=== PATIENT | female | born 1985 | race Caucasian/White ===

== ENCOUNTER 2016-09-27 16:36 | Emergency (ER) | payer OTHER ==
[~2016-09-27] VITALS: Ht 162.6 cm; Wt 54.5 kg
[~2016-09-27 16:36] MED LIST: AMT25T PO; HYDR-4003 PO; ONDA4TAB9 PO; SULF1TAB35 PO
[2016-09-27 16:52] VITALS: BP 150/74; RESP 18; O2SAT 99
--- NOTE | 2016-09-27 17:02 | ED.REPORT ---
HPI-General Illness Date of Service Sep 27, 2016 ED Provider: Triston Garcia MD Pt is a 31 year old female presenting to the ED complaining of throat pain and swelling onset 4 days ago. Denies cough, runny nose, fever. Nursing Notes Stated Complaint: SINUS PRESSURE Chief Complaint: ENT & Mouth Nursing Notes Reviewed: Yes Allergies: Coded Allergies: No Known Allergies (Unverified Allergy, Unknown, 06/01/16) Scheduled Amitriptyline (Amitriptyline) 25 Mg Tab 25 MG PO HS Amoxicillin/Clav K 875-125 mg (Augmentin 875-125 mg) 1 Each Tablet 1 TABLET PO BID Sulfamethoxazole/Trimeth 800-160 mg (Bactrim DS 800-160 mg) 1 Each Tablet 1 TABLET PO BID Scheduled PRN Hydrocodone-Acetaminophen 5-325 mg (Hydrocodone-Acetaminophen 5-325 mg) 1 Each Tablet 1 TABLET PO Q6H PRN PRN For Pain Ondansetron ODT (Zofran ODT) 4 Mg Tablet 4 MG PO Q4H PRN PRN For Nausea General Time Seen by MD: 17:00 Chief Complaint Sore throat Hx Obtained From: Patient Arrived By: Walk-in Sudden in Onset?: No Onset Occurred: 4 days ago Symptom Duration: Since onset Location: : Face: Neck Quality: Painful Severity: Current: Mild Severity: Maximum: Mild Recent Healthcare: No recent doctor visit, No recent hospitalization Similar Sx Previous: No Past Medical History Past Medical History Urine cultures done on 11/30/2015 and 12/23/2015 both showed "no growth" White coat syndrome which commonly causes her to be tachycardic Past Surgical History Family History Denies urologic disease Smoking History Never Smoker Social History Other Social History: Good social support, Local resident Ambulatory Status Independent Review of Systems Full Review of Systems Constitutional: Denies: Fever Ears / Nose / Throat: Reports: Sinus problem, Sore throat, Throat pain, Throat swelling Respiratory: Denies: Non-productive cough Complete sys rev & neg: except as marked. Physical Exam Vital Signs Vital Signs Date Time Temp Pulse Resp B/P Pulse Ox O2 Delivery O2 Flow Rate FiO2 09/27/16 16:52 37.1 129 18 150/74 99 Initial VS: Reviewed General/Constitutional: Well-developed, Well-nourished Head / Eyes: Atraumatic, Normocephalic, PERRL Respiratory: Breath sounds normal, Clear to auscultation, No respiratory distress Cardiovascular: Regular rate & rhythm, Heart sounds normal, Intact distal pulses Abdomen / GI: No distention Extremities: No tenderness Skin: Warm, Dry, No cyanosis Neurologic: Alert, Oriented, Nonfocal Psychiatric: Mood/affect normal, Behavior normal, Normal thought content ENT: Airway patent, Tympanic membs NL Oropharynx erythematous, no exudates. Re-Eval/Medical Decision Med Decision/Clinical Course 31-year-old female with facial pain and throat pain 4 days. Maxillary sinus tenderness. We will treat with Augmentin. Possibly viral and patient may wait to see if symptoms resolve prior to starting antibiotics if she chooses. Follow-up primary doctor several days. Return precautions given. Time of Eval: 17:35 Patient Status: Condition improved Re-Evaluation/Progress Note: Discussed plan for discharge. Pt understands and agrees. All pt questions addressed. Counseled Regarding: Diagnosis, Lab results, Need for follow-up, When/why to return to ED Discharge & Departure Primary Impression: Sinusitis Sinusitis location: unspecified location Chronicity: unspecified Qualified Code: J32.9 - Chronic sinusitis, unspecified Disposition: Home Discharge Condition All VS Reviewed: Yes Condition: Improved Additional Instructions: It looks like you have sinusitis. Take some throat lozenges and drink lots of fluids. Take the antibiotics as prescribed. Return to the ER if you have any new or worsening symptoms. Follow up with your primary care doctor if your symptoms don't improve. Referrals: [facility] (PCP) Scribe Attestation Portions of this note were transcribed by Ajit. I, Dr. Garcia personally performed the history, physical exam and medical decision-making; I reviewed and confirmed the accuracy of the information in the transcribed note. Signed by: Madison Moreno, 09/27/2016 and 1735. Triston Garcia MD Sep 27, 2016 17:02 AJIT OLVERA Sep 27, 2016 17:23
[2016-09-27] MEDS ORDERED: AMOX-366 PO (17:23)
== END 2016-09-27 17:30 | disposition home or self-care (01) ==
LOC: SED 16:36
DX: J32.9 Chronic sinusitis, unspecified (principal)

== ENCOUNTER 2017-02-03 20:16 | Emergency (ER) | payer OTHER ==
[~2017-02-03] VITALS: Ht 162.6 cm; Wt 56.4 kg
[~2017-02-03 20:16] MED LIST changes: +AMOX-366 PO
[2017-02-03 20:23] VITALS: BP 144/89; RESP 20; O2SAT 99
--- NOTE | 2017-02-03 20:31 | ED.REPORT ---
HPI-General Illness Date of Service Feb 03, 2017 ED Provider: Dez Holden DO 31 y/o female with no pertinent hx presents to the ED complaining of a lump in her throat, onset last week. The pt states "when I swallow food it feels like it hits a rock". She has also been feeling pressure in her chest for the past three days which she associates with the blocked throat. Associated sx include chills, SOB, nausea and dysphagia. She denies cough. Drinking water or cough drops have not relieved her throat pain.The pt is currently on her period. Nursing Notes Stated Complaint: TIGHTNESS IN CHEST,SOMETHING IN THROAT Chief Complaint: ENT & Mouth Nursing Notes Reviewed: Yes Allergies: Coded Allergies: No Known Allergies (Verified Allergy, Unknown, 02/03/17) General Time Seen by MD: 20:31 Chief Complaint Other (throat pain) Hx Obtained From: Patient Arrived By: Walk-in Sudden in Onset?: Yes Onset Occurred: 1 week ago Symptom Duration: Since onset Quality: Painful (Throat) Radiation: : Does not radiate Recent Healthcare: Recent doctor visit Similar Sx Previous: No Past Medical History Past Medical History White coat syndrome which commonly causes her to be tachycardic Past Surgical History Family History Denies urologic disease Smoking History Never Smoker Social History Alcohol Use: Denies alcohol use Other Social History: Good social support, Local resident Ambulatory Status Independent Review of Systems Reports: chest pressure Full Review of Systems Constitutional: Reports: Chills Ears / Nose / Throat: Reports: Throat pain (lump in the throat) Respiratory: Reports: Shortness of breath, Denies: Non-productive cough GI: Reports: Dysphagia, Nausea Complete sys rev & neg: except as marked. Physical Exam Vital Signs Vital Signs Date Time Temp Pulse Resp B/P Pulse Ox O2 Delivery O2 Flow Rate FiO2 02/03/17 20:23 37.5 100 20 144/89 99 Room Air Initial VS: Reviewed Head / Eyes: Atraumatic, Normocephalic Neck: Supple, Non-tender, Full range of motion Respiratory: Breath sounds normal, Clear to auscultation, No respiratory distress Cardiovascular: Regular rate & rhythm, Heart sounds normal, Intact distal pulses Abdomen / GI: Soft, Non-tender Extremities: Vascular intact, Neuro intact, No swelling, No tenderness Skin: Warm, Dry, No cyanosis Neurologic: Alert, Oriented, Nonfocal General/Constitutional: Awake, Alert, Cooperative ENT: Atraumatic, Airway patent, Pharynx NL Interpretation & Diagnostics ECG Interpretation ECG Interpretation: Normal sinus rhtyhm. Rate 87. Time: 20:44 Interpreted by: ED physician X-Ray Chest Interpretation Chest Xray Interpretation: IMPRESSION: No acute cardiopulmonary disease. Dictated by: Mary Browne M.D. on 02/03/2017 at 21:22 Approved by: Mary Browne M.D. on 02/03/2017 at 21:22 View: Portable, AP & lat Interpretation / Wet Read by: Interpret - Radiologist Re-Eval/Medical Decision Med Decision/Clinical Course Patient with persistent foreign body sensation and difficulty swallowing and reportedly has switched to a liquid only diet because of this. Clinical exam is reassuring. There certainly seems to be a moderate amount of anxiety going on as well. I question if this patient has esophagitis or other shoulder obstruction or stricture in the esophagus. EKG and chest x-ray are reassuring. She had minimal relief with GI cocktail. Discuss with GI who will plan an endoscopy for tomorrow. Return and follow-up precautions given. Time of Eval: 21:13 Patient Status: Mild relief Re-Evaluation/Progress Note: Rechecked pt. Discussed EKG. All questions answered Time of Eval: 21:31 Patient Status: Mild relief Re-Evaluation/Progress Note: Rechecked pt. Discussed imaging results, diagnosis and plan to discharge. Informed the pt to follow up with Dr. Ring. Pt understands and agrees with plan. F/U instructions and RTER warning given. All questions addressed. Consultation : Referral / Consult Name: Gregory Ring MD Call Returned at: 21:22 Housekeeping Worker: Will see in office, Agrees with eval, Agrees with plan Note: Dr. Ring, GI, will see pt for an endoscopy tomorrow afternoon. Recommends taking OTC antacids and staying NPO solids until midnight and drinking clear liquids until 10:00. Counseled Regarding: Diagnosis, Need for follow-up, When/why to return to ED Discharge & Departure Primary Impression: Throat pain Additional Impression: Foreign body sensation in throat Disposition: Home Discharge Condition All VS Reviewed: Yes Condition: Stable Additional Instructions: Thank you for entrusting us with your care today. Your Xray was normal. Follow up with Dr. Gregory Ring for an endoscopy tomorrow afternoon. Do not eat food after midnight tonight and drink only clear fluids unitl 10am tomorrow. Take over the counter liquid antacids if needed. Return to the emergency department for any new or worsening symptoms. Dr. Ring Address: [address] [place] [address] Referrals: [facility] Gregory Ring MDibalanis Attestation Portions of this note were transcribed by Pepe Hernandez. I, , personally performed the history, physical exam and medical decision-making;I reviewed and confirmed the accuracy of the information in the transcribed note. Signed by Madison Cuba. 02/03/17 21:40 copies to: [facility]; Gregory Ring MD, Timothy Melly SPEARS Feb 03, 2017 20:31 Pepe Hernandez Feb 03, 2017 20:38
[2017-02-03] MEDS ORDERED: LidocaineVisc 2%:Antacid 1:1 10 mL Syringe PO ONE (20:40)
--- NOTE | 2017-02-03 21:24 | DRSVH ---
PROCEDURE: X-RAY CHEST, TWO VIEWS ([id number]) INDICATIONS: chest pain TECHNIQUE: 2 views of the chest were acquired. COMPARISON: None. FINDINGS: Surgical changes and devices: None. Lungs and pleura: No pleural effusions or pneumothorax. Lungs are clear. Mediastinum: Mediastinal contours are normal. Heart size is normal. Bones and chest wall: No suspicious bony abnormalities. Soft tissues appear unremarkable. IMPRESSION: No acute cardiopulmonary disease. Dictated by: Mary Browne M.D. on 02/03/2017 at 21:22 Approved by: Mary Browne M.D. on 02/03/2017 at 21:22
[2017-02-03] MEDS ORDERED: LORazepam Oral Conc 2 mg/mL 30 mL Solution PO ONE (21:35)
[2017-02-03 22:20] VITALS: BP 120/82; PULSE 86; O2SAT 98
[2017-02-03 22:28] VITALS: BP 120/82; PULSE 86; O2SAT 98
[2017-02-04] MEDS ORDERED: CITA20TA PO (16:15)
== END 2017-02-03 22:28 | disposition home or self-care (01) ==
LOC: SED 20:16
DX: R07.0 Pain in throat (principal); R09.89 Other specified symptoms and signs involving the circulatory and respiratory systems; R07.89 Other chest pain; R22.2 Localized swelling, mass and lump, trunk

== ENCOUNTER 2017-02-04 15:24 | Day surgery (SDC) | payer OTHER ==
[~2017-02-04] VITALS: Ht 162.6 cm; Wt 52.0 kg
[2017-02-04 15:54] VITALS: BP 123/86; PULSE 114; RESP 14; O2SAT 100
[2017-02-04] MEDS ORDERED: CITA20TA PO (16:15)
[2017-02-04] MEDS ORDERED: fentaNYL-PF 50 mCg/mL 2 mL Inj ONE (16:42)
[2017-02-04 17:21] VITALS: BP 127/78; PULSE 103; RESP 16; O2SAT 98
[2017-02-04 17:34] VITALS: BP 122/89; PULSE 114; RESP 16; O2SAT 97
[2017-02-04] MEDS ORDERED: 0.9% Sodium Chloride 1,000 ML IV PRN (18:13)
[2017-02-04] MEDS ORDERED: fentaNYL-PF 50 mCg/mL 2 mL Inj IVPUSH PRN (18:15)
--- NOTE | 2017-02-05 00:27 | ENDO ---
[address] [address] ENDOSCOPY PROCEDURE PATIENT: NAVARRO PADILLA : 1985 MR#: [id number] ADMIT: 02/04/2017 JOB ID: [id number] DATE OF SERVICE: 02/04/2017 PRIMARY PROVIDER: [facility] PROCEDURE: Esophagogastroscopy. INDICATIONS: A 31-year-old female with about a week or so of a painful sensation in her neck with swallowing. This did not get better with GI cocktail. EGD is pursued. EQUIPMENT: [id number]. SEDATION: 1. Versed 10 mg. 2. Fentanyl 200 mcg. 3. Lidocaine swish and swallow. COMPLICATIONS: None identified. PROCEDURAL INFORMATION: After the risks and benefits were explained, written and verbal informed consent was obtained. The patient was brought into the endoscopy suite and placed into the left lateral decubitus position. Sedation was achieved using the above stated medications with the addition of oxygen via nasal cannula. The scope was introduced into the mouth through the bite block and advanced through the oropharynx, esophagus and down to the stomach. The patient was incredibly intolerant of the exam and any attempt at navigating through the pylorus required a little bit of loop being introduced into the stomach and she simply did not tolerate. Pulse would raise to about 155 with the patient reaching for the scope. We therefore did not attempt to navigate all the way into duodenum proper. The scope was withdrawn. Retroflexed views were accomplished in the stomach. The stomach was decompressed. The patient was very intolerant of the entire examination. FINDINGS: 1. Duodenum: Not seen. 2. Stomach: No outlet obstruction. No ulcers. No mass lesions. Retroflexed views of the LES were rather unremarkable. 3. Esophagus: The squamocolumnar junction correlated with the top of the gastric folds. The GEJ was at about 38 cm from the incisors. No evidence of any acute erosive changes. No strictures. No mass lesions. There was a benign-appearing present (versus a very small lipoma). I did not see any evidence of ulcerations. No exudates suggestive of an infectious pathology. No foreign bodies. 4. Oropharynx: The patient had punctate erosive features all around enlarged tonsils bilaterally. ENDOSCOPIC DIAGNOSES: 1. Enlarged tonsils. 2. Otherwise unremarkable limited upper endoscopy. RECOMMENDATIONS: 1. Ear, Nose and Throat consultation. 2. For any future upper endoscopy, anesthesia would be required.
== END 2017-02-04 23:59 | disposition home or self-care (01) ==
LOC: END 15:24
PROVIDERS: ATTEND Internal Medicine Gastroenterology
DX: J35.1 Hypertrophy of tonsils (principal)
CPT/HCPCS: 43235; 99153; G0500; J2250; J3010